=== PATIENT | male | born 1930 | race Caucasian/White ===

== ENCOUNTER 2017-04-01 10:00 | Emergency (ER) | payer MEDICARE, OTHER ==
[~2017-04-01] VITALS: Ht 172.7 cm; Wt 77.3 kg
[~2017-04-01 10:00] MED LIST: ALDACTONE 25MG25 M1 PO; AMBIEN 5MG TABLE5 MG PO; ANTIVERT 25MG25 MG PO; ASPIRIN 81M81 MG/TA2 PO; ASPIRIN E.C. 8181 MG PO; BENADRYL ALLERG25 M2 PO; BONINE25 MG PO; CALCIUM CARB W/1 TA1 PO; CALCIUM1 CAP PO; CEPHALEXIN500 M1 PO; COLACE 100100 MG/CAP PO; COMPLETE PO; COUMADIN 22.5 MG/TAB PO; COUMADIN 2MG2 MG/TAB PO; COUMADIN 3MG3 MG/TAB PO; COUMADIN 5MG5 MG/TAB PO; DULCOLAX S10 MG/SUPP RC; DUO-KAPS1 CAP PO; FLEXERIL 1010 MG/TAB PO; FLOMAX 0.40.4 MG/CAP PO; FOLIC ACID 11 MG/TA1 PO; IMDUR 30MG30 MG/TAB PO; KLOR-CON 1010 MEQ PO; LASIX 20MG TABL20 MG PO; LASIX 40MG TABL40 MG PO; LOPRESSOR 225 MG/TAB PO; MIRALAX PA17 GM/Dose PO; MULTIPLE VITAMI1 CAP PO; MYLANTA 150 ML150 M1 PO; NORCO 325 MG-51 TAB PO; PYRIDIUM 100MG100 MG PO; SLO-NIACIN250 MG PO; TOPROL XL 25MG25 MG PO; TYLENOL 325MG325 MG PO; UNABLE; ZOCOR 40MG40 MG PO; [UNRECOGNIZED DRUG - OTHER]; [UNRECOGNIZED DRUG - OTHER] PO
[2017-04-01 10:13] VITALS: TEMP 97.8
[2017-04-01 11:50] LABS: CALCIUM 9.5 mg/dL (8.4-10.2); CREATININE, serum 0.98 mg/dL (0.66-1.25); POTASSIUM 4.5 mmol/L (3.4-5.0)
[2017-04-01 11:54] LABS: INR 3.3 (0.8-3.0); PROTHROMBIN TIME 38.9 SECONDS (9.7-12.8)
[2017-04-01 11:55] LABS: BASO % 0.5 % (0.0-2.0); EOS # 0.1 (0.0-0.7); EOS % 1.4 % (0-4.0); GRAN # 4.9 (1.4-6.5); GRAN % 73.8 % (42.2-75.2); HEMATOCRIT 40.2 % (42.0-52.0); HEMOGLOBIN 13.2 g/dl (13.5-18.0); LYMPH % 14.6 % (20.0-51.0); MEAN CELL VOLUME 103 fl (80.0-100.0); MEAN CORPUSCULAR HEMOGLOBIN 34 pg (27.0-31.0); MEAN CORPUSCULAR HGB CONC 33 g/dl (33.0-37.0); MEAN PLATELET VOLUME 9.4 fl (7.4-10.4); MONO # 0.6 (0.1-0.6); MONO % 8.6 % (1.7-9.3); PLATELET COUNT 199 K/mm3 (130-400); RED BLOOD COUNT 3.91 M/mm3 (4.20-5.60); WHITE BLOOD COUNT 6.7 K/mm3 (4.8-10.8)
[2017-04-01 13:17] VITALS: BP 99/91; PULSE 88
[2017-04-01] MEDS ORDERED: PHENERGAN25 MG RC (13:52)
== END 2017-04-01 13:17 | disposition home or self-care (01) ==
LOC: COL.ER 10:00
PROVIDERS: Emergency Medicine
DX: S60.012A Contusion of left thumb without damage to nail, initial encounter (principal); S60.022A Contusion of left index finger without damage to nail, initial encounter; Z79.01 Long term (current) use of anticoagulants; Z79.82 Long term (current) use of aspirin; Z95.2 Presence of prosthetic heart valve; X58.XXXA Exposure to other specified factors, initial encounter

== ENCOUNTER 2018-03-30 16:06 | Emergency (ER) | payer MEDICARE, OTHER ==
[~2018-03-30 16:06] MED LIST changes: +PHENERGAN25 MG RC
[2018-03-30 16:15] VITALS: TEMP 97.9
[2018-03-30 16:43] LABS: BASO % 0.4 % (0.0-2.0); EOS % 0.4 % (0-4.0); GRAN # 6.1 (1.4-6.5); GRAN % 83.1 % (42.2-75.2); HEMOGLOBIN 12.1 g/dl (13.5-18.0); LYMPH # 0.6 (1.2-3.4); LYMPH % 8.5 % (20.0-51.0); MEAN CELL VOLUME 102 fl (80.0-100.0); MEAN CORPUSCULAR HEMOGLOBIN 35 pg (27.0-31.0); MEAN CORPUSCULAR HGB CONC 34 g/dl (33.0-37.0); MEAN PLATELET VOLUME 8.9 fl (7.4-10.4); MONO # 0.5 (0.1-0.6); MONO % 7.3 % (1.7-9.3); PLATELET COUNT 190 K/mm3 (130-400); REDCELL DISTRIBUTION WIDTH-CV 14.4 % (11.5-14.5)
[2018-03-30 17:05] LABS: HEMATOCRIT 35.7 % (42.0-52.0)
[2018-03-30 17:24] LABS: INR 4.5 (0.8-3.0)
[2018-03-30 17:26] LABS: PARTIAL THROMBOPLASTIN TIME 48.5 SECONDS (26.0-37.0)
[2018-03-30 17:40] LABS: PROTHROMBIN TIME 51.5 SECONDS (9.7-12.8)
[2018-03-30 17:46] LABS: ALBUMIN 3.7 gm/dL (3.5-5.0); BILIRUBIN,TOTAL 0.6 mg/dL (0.0-1.0); CALCIUM 8.7 mg/dL (8.4-10.2); CREATININE, serum 0.94 mg/dL (0.66-1.25); POTASSIUM 3.8 mmol/L (3.4-5.0)
[2018-03-30 17:57] LABS: TROPONIN-I 0.016 ng/mL (0.000-0.034)
[2018-03-30] MEDS ORDERED: MEDROL 4MG DOSPA4 MG PO (18:27)
[2018-03-30 19:05] VITALS: BP 160/93; PULSE 70
== END 2018-03-30 19:05 | disposition home or self-care (01) ==
LOC: COL.ER 16:06
PROVIDERS: Family Medicine
DX: M54.12 Radiculopathy, cervical region (principal); M48.02 Spinal stenosis, cervical region; R79.1 Abnormal coagulation profile; R07.89 Other chest pain; I71.2 Thoracic aortic aneurysm, without rupture; I25.10 Atherosclerotic heart disease of native coronary artery without angina pectoris; I11.0 Hypertensive heart disease with heart failure; I50.9 Heart failure, unspecified; Z79.82 Long term (current) use of aspirin; Z79.01 Long term (current) use of anticoagulants; Z95.0 Presence of cardiac pacemaker; Z95.1 Presence of aortocoronary bypass graft